=== PATIENT | female | born 1950 | race Native Hawaiian/Other Pacific Islander ===

== ENCOUNTER 2017-03-12 07:01 | Day surgery (SDC) | payer OTHER ==
[2017-03-12] MEDS ORDERED: Lactated Ringer's 500 ML IV ONE (07:38)
[2017-03-12] MEDS ORDERED: ePHEDrine 50 mg/ml Inj ONE (07:51)
[2017-03-12] MEDS ORDERED: Propofol 10 mg/ml Inj (20 ML) ONE (07:51)
[2017-03-12 09:40] VITALS: PULSE 61; TEMP 96.8
[2017-03-12 09:49] VITALS: BP 113/65; RESP 15; O2SAT 100
== END 2017-03-12 10:11 | disposition home or self-care (01) ==
LOC: H.ENDO 07:01
PROVIDERS: ATTEND Internal Medicine Gastroenterology
DX: Z12.11 Encounter for screening for malignant neoplasm of colon (principal); K64.8 Other hemorrhoids; D12.2 Benign neoplasm of ascending colon; D12.3 Benign neoplasm of transverse colon; K21.9 Gastro-esophageal reflux disease without esophagitis; R79.89 Other specified abnormal findings of blood chemistry; K30 Functional dyspepsia; K31.9 Disease of stomach and duodenum, unspecified; E11.9 Type 2 diabetes mellitus without complications; E78.5 Hyperlipidemia, unspecified; F32.9 Major depressive disorder, single episode, unspecified; M81.0 Age-related osteoporosis without current pathological fracture

== ENCOUNTER 2017-04-23 07:06 | Day surgery (SDC) | payer OTHER ==
[2017-04-22 11:45] VITALS: BMI 18.8
[2017-04-23] MEDS ORDERED: Lactated Ringer's 1,000 ML IV ONE ×2 (10:43→12:20)
--- NOTE | 2017-04-23 12:15 | CP.SDSHP ---
Same Day Surgery H & P - History Proposed Procedure: US guided liver biopsy Pre-Op Diagnosis: Abnormal LFTs - Allergies Allergies: Allergies No Known Allergies Allergy (Verified 03/12/17 07:43) - Physical Exam Vital Signs: Vital Signs 04/23/17 04/23/17 10:29 10:35 Temperature 97.5 F L Pulse Rate 56 L 56 L Respiratory 20 Rate Blood Pressure 120/67 O2 Sat by Pulse 96 Oximetry Mental Status: Alert & Oriented x3 Neuro: WNL Heart: WNL Lungs: WNL - Impression Impression: Pt with abnormal LFTs referred for liver biopsy. Plan US guided liver biopsy. Informed consent obtained. Pt. Evaluated Today:Candidate for Anesthesia & Procedure: Yes (ASA 2 Malampati 2) Short Stay Discharge - Short Stay Discharge Admitting Diagnosis/Reason for Visit: R94.5 Referrals: Teodora Harris MD [Primary Care Provider] - Progress Note/Discharge Note with Instructions: S/P left liver biopsy. There were no immediate complications.
--- NOTE | 2017-04-23 12:16 | PCM.SURG1 ---
Surgeon's Initial Post Op Note - Surgeon's Notes Surgeon: Baldev Aguilar MD Review Manager: NONE Type of Anesthesia: IV Sedation Pre-Operative Diagnosis: Abnormal LFTs Operative Findings: Limited US showed an unremarkable liver. Post-Operative Diagnosis: Abnormal LFTs Operation Performed: US guided core biopsy of left hepatic lobe. Biopsy tract embolized with gelfoam. Specimen/Specimens Removed: 18 gauge core x 4 Estimated Blood Loss: EBL {In ML}: 1 Blood Products Given: N/A Drains Used: No Drains Post-Op Condition: Good Date of Surgery/Procedure: 04/23/17 Time of Surgery/Procedure: 12:05
[2017-04-23 12:17] VITALS: RESP 18
[2017-04-23] MEDS ORDERED: Sodium Chloride 0.9% 1,000 ML IV SCH (12:30)
[2017-04-23 14:40] VITALS: BP 123/69; PULSE 62; TEMP 98.2
[2017-04-23 14:41] VITALS: O2SAT 99
--- NOTE | 2017-04-24 11:48 | US ---
PROCEDURE: Date of procedure: 04/23/2017 Procedure: 1. Ultrasound-guided core liver biopsy, CPT 51185 2. Ultrasound guidance for biopsy, [address] Medications: The patient is sedated by the anesthesiologist. HISTORY: Abnormal LFTs TECHNIQUE: Following informed consent and procedure time-out, the patient was placed supine on bed and limited ultrasound showed a normal appearing left hepatic lobe. After patient abdomen was prepped and draped in the usual sterile fashion and the skin was anesthetized with 2% lidocaine, an 18 gauge core needle was advanced percutaneously under direct ultrasound guidance into the left hepatic lobe. Upon confirmation of needle position, three 18 gauge core specimens were obtained and sent for routine pathology. The biopsy to tract was then embolized with Gelfoam. A post biopsy ultrasound showed no hematoma. A dressing was applied. IMPRESSION: Ultrasound-guided core biopsy left hepatic lobe. There were no immediate complications.
== END 2017-04-23 15:15 | disposition home or self-care (01) ==
LOC: H.OPSURG 07:06
PROVIDERS: ATTEND Internal Medicine Gastroenterology
DX: R94.5 Abnormal results of liver function studies (principal)